=== PATIENT | male | born 2000 | race Two or more races ===

== ENCOUNTER 2022-07-17 16:40 | Emergency (ER) | payer OTHER ==
[~2022-07-17] VITALS: Ht 170.2 cm; Wt 69.9 kg
[2022-07-17] MEDS ORDERED: DEPAKOTE ER250 MG PO (17:00)
== END 2022-07-17 21:16 | disposition home or self-care (01) ==
LOC: ER 16:40
DX: M54.9 Dorsalgia, unspecified (principal); Z88.6 Allergy status to analgesic agent; L05.01 Pilonidal cyst with abscess

== ENCOUNTER 2022-07-18 09:44 | Outpatient (CLI) | payer OTHER ==
[~2022-07-18 09:44] MED LIST: DEPAKOTE ER250 MG PO
== END 2022-07-18 09:45 | disposition home or self-care (01) ==
LOC: LAB 09:44
PROVIDERS: ATTEND Specialist
DX: L02.91 Cutaneous abscess, unspecified (principal)